=== PATIENT | female | born 1940 ===

== ENCOUNTER 2025-02-16 07:51 | Day surgery (SDC) | payer OTHER ==
[2025-02-08 11:16] VITALS: BP 160/78
[~2025-02-16] VITALS: Ht 162.6 cm; Wt 86.2 kg
[~2025-02-16 07:51] MED LIST: AMLODIPINE-OLM1 EAC2 PO; ANASTROZOLE1 MG PO; ATORVASTATIN CA10 MG PO; HORIZANT300 MG PO; LEVOTHYROXINE25 MCG PO
[2025-02-16] MEDS ORDERED: LIDOCAINE HCL 1%/EPINEPHRINE 20ML VIAL IJ ONE ×2 (10:40→11:47)
[2025-02-16] MEDS ORDERED: BUPIVACAINE HCL/MPF 0.5% 30ML VIAL ONE ×2 (10:40→11:47)
[2025-02-16] MEDS ORDERED: CEFAZOLIN SODIUM 1,000 MG VIAL ONE (10:47)
[2025-02-16] MEDS ORDERED: TRAM1TAB98 PO (12:00)
[2025-02-16] MEDS ORDERED: MORPHINE SULFATE 4 MG/ML VIAL IV ONE (13:45)
== END 2025-02-16 15:20 | disposition home or self-care (01) ==
LOC: CIR.AMB 07:51
PROVIDERS: ATTEND Surgery
DX: R15.9 Full incontinence of feces (principal)
CPT/HCPCS: 64581; 95972; C1778

== ENCOUNTER 2025-03-02 07:39 | Day surgery (SDC) | payer OTHER ==
[2025-02-28 14:10] VITALS: BP 160/78
[~2025-03-02] VITALS: Ht 157.5 cm; Wt 86.2 kg
[~2025-03-02 07:39] MED LIST changes: +TRAM1TAB98 PO
[2025-03-02] MEDS ORDERED: CEFAZOLIN SODIUM 1,000 MG VIAL ONE (08:49)
[2025-03-02] MEDS ORDERED: LIDOCAINE HCL 1%/EPINEPHRINE 20ML VIAL IJ ONE (10:13)
[2025-03-02] MEDS ORDERED: BUPIVACAINE HCL/MPF 0.5% 30ML VIAL ONE (10:13)
[2025-03-02] MEDS ORDERED: TRAM1TAB98 PO (11:58)
== END 2025-03-02 16:10 | disposition home or self-care (01) ==
LOC: CIR.AMB 07:39
PROVIDERS: ATTEND Surgery
DX: R15.9 Full incontinence of feces (principal); R19.4 Change in bowel habit
CPT/HCPCS: 64590; 95972; C1767